=== PATIENT | female | born 1960 | race Caucasian/White ===

== ENCOUNTER 2023-02-07 08:54 | Outpatient (RCR) | payer OTHER ==
[~2023-02-07 08:54] MED LIST: BUPIVACAINE HCL 0.5% INJ 30 ML VIAL INJ ONE; CRESTOR10 MG PO; LEVOTHYROXINE112 MCG PO; LIDOCAINE 1% W/EPINEPHRINE 20 ML VIAL ONE; LISINOPRIL-HCT1 EAC2 PO
== END 2023-02-10 ==
LOC: PT 08:54
PROVIDERS: ATTEND Orthopaedic Surgery
DX: S83.232A Complex tear of medial meniscus, current injury, left knee, initial encounter (principal); M25.562 Pain in left knee

== ENCOUNTER 2023-07-09 06:04 | Observation (INO) | payer OTHER ==
[~2023-07-09] VITALS: Ht 154.9 cm; Wt 70.8 kg
[~2023-07-09 06:04] MED LIST changes: -BUPIVACAINE HCL 0.5% INJ 30 ML VIAL INJ ONE; -LIDOCAINE 1% W/EPINEPHRINE 20 ML VIAL ONE
[2023-07-09 06:29] LABS: BASOPHILS # (AUTO) 0.1 (0.0-0.1); BASOPHILS % 1.1 % (0.0-1.0); EOSINOPHILS # (AUTO) 0.4 (0.0-0.4); EOSINOPHILS % 4.7 % (0.0-6.0); HEMOGLOBIN 14.5 g/dL (12.0-16.0); LYMPHOCYTES # (AUTO) 3.2 (1.0-3.2); LYMPHOCYTES % 34.5 % (18.0-39.1); MEAN CORPUSCULAR HEMOGLOBIN 30.9 pg (28-32); MEAN CORPUSCULAR HGB CONC 33.7 g/dL (31-35); MEAN CORPUSCULAR VOLUME 91.7 fL (81-99); MONOCYTES # (AUTO) 0.5 (0.2-0.8); MONOCYTES % 5.7 % (4.4-11.3); NEUTROPHILS % 53.8 % (38.7-80.0); PLATELET COUNT 250 x10e3/uL (140-360); RED BLOOD COUNT 4.69 x10e6/uL (3.6-5.1); RED CELL DISTRIBUTION WIDTH 12.2 % (11.7-14.4)
[2023-07-09] MEDS: ONDANSETRON HCL INJ 2MG/ML 2ML 2 MG/ML VIAL IV STA (06:29)
[2023-07-09] MEDS: DONNATAL/LIDOCAINE/MAALOX 30 ML SUSP PO ONE (06:29)
[2023-07-09] MEDS ORDERED: LIDOCAINE VISC 2% SOLN 15 ML UDC ONE (06:30)
[2023-07-09] MEDS ORDERED: BELLADONNA ALK/PHENOBARBITAL 5 ML UDC ONE (06:30)
[2023-07-09] MEDS ORDERED: MAGNESIUM/ALUMINUM/SIMETHICONE 30 ML UDC ONE (06:30)
[2023-07-09 06:53] LABS: ALANINE AMINOTRANSFERASE 13 IU/L (0-55); ALBUMIN 4.2 g/dL (3.5-5.0); ALBUMIN/GLOBULIN RATIO 1.2 (0.8-2.0); ALKALINE PHOSPHATASE 78 IU/L (40-150); ANION GAP 16.5 mmol/L (8-16); BILIRUBIN,TOTAL 0.3 mg/dL (0.2-1.2); BLOOD UREA NITROGEN 20 mg/dL (7-26); BUN/CREATININE RATIO 22 (6-25); CALCIUM 9.8 mg/dL (8.4-10.2); CARBON DIOXIDE 24 mmol/L (22-29); CHLORIDE 104 mmol/L (98-107); CREATINE KINASE 59 IU/L (29-168); CREATININE, SERUM 0.92 mg/dL (0.57-1.11); EST GLOMERULAR FILTRATION RATE 70 ML/MIN (>=60); GLUCOSE 104 mg/dL (74-118); POTASSIUM 3.5 mmol/L (3.5-5.1); SODIUM 141 mmol/L (136-145); TOTAL PROTEIN 7.7 g/dL (6.5-8.1)
[2023-07-09] MEDS: ASPIRIN 81 MG CHEW TAB PO ONE ×2 (07:11→09:46)
[2023-07-09 07:21] LABS: TROPONIN I < 0.001 ng/mL (0-0.300)
[2023-07-09] MEDS ORDERED: SODIUM CHLORIDE 0.9% 100 ML ONE (07:39)
[2023-07-09] MEDS ORDERED: IOPAMIDOL 370 MG/ML 100 ML INFUS..BTL INJ ONE (07:39)
[2023-07-09] MEDS ORDERED: ONDANSETRON HCL INJ 2MG/ML 2ML 2 MG/ML VIAL IV PRN (08:45)
[2023-07-09] MEDS ORDERED: Morphine 2mg Syringe 2 MG/ML SYR IV PRN (08:45)
[2023-07-09 10:01] VITALS: BP 131/87; PULSE 81; RESP 18; TEMP 98.4; O2SAT 99
[2023-07-09] MEDS: CEPACOL SORE THROAT LOZENGES PO PRN (11:46)
[2023-07-09 12:40] VITALS: BP 120/69; PULSE 65; RESP 18; TEMP 98.3; O2SAT 99
[2023-07-09 14:57] LABS: CREATINE KINASE 46 IU/L (29-168)
[2023-07-09 15:17] LABS: TROPONIN I < 0.001 ng/mL (0-0.300)
[2023-07-09 16:44] VITALS: BP 130/67; PULSE 80; RESP 17; TEMP 98.3; O2SAT 99
[2023-07-09 20:00] VITALS: BP 131/65; PULSE 72; RESP 18; TEMP 97.7; O2SAT 98
[2023-07-09 21:00] VITALS: BP 131/65; PULSE 72; RESP 18; TEMP 97.7; O2SAT 98
[2023-07-10] VITALS: BP 124/64; PULSE 74; RESP 18; TEMP 97.4; O2SAT 98
[2023-07-10 04:00] VITALS: BP 117/67; PULSE 71; RESP 18; TEMP 97.7; O2SAT 98
[2023-07-10 07:30] LABS: BASOPHILS # (AUTO) 0.1 (0.0-0.1); BASOPHILS % 0.9 % (0.0-1.0); EOSINOPHILS # (AUTO) 0.4 (0.0-0.4); EOSINOPHILS % 4.8 % (0.0-6.0); HEMATOCRIT 40.3 % (34.2-44.1); HEMOGLOBIN 13.3 g/dL (12.0-16.0); LYMPHOCYTES # (AUTO) 2.4 (1.0-3.2); LYMPHOCYTES % 32.5 % (18.0-39.1); MEAN CORPUSCULAR HEMOGLOBIN 30.3 pg (28-32); MEAN CORPUSCULAR VOLUME 91.8 fL (81-99); MONOCYTES # (AUTO) 0.5 (0.2-0.8); MONOCYTES % 6.3 % (4.4-11.3); NEUTROPHILS # (AUTO) 4.1 (2.1-6.9); NEUTROPHILS % 55.1 % (38.7-80.0); PLATELET COUNT 234 x10e3/uL (140-360); RED BLOOD COUNT 4.39 x10e6/uL (3.6-5.1); RED CELL DISTRIBUTION WIDTH 12.4 % (11.7-14.4); WHITE BLOOD COUNT 7.51 x10e3/uL (4.8-10.8)
[2023-07-10 07:46] LABS: CREATINE KINASE 46 IU/L (29-168)
[2023-07-10 08:00] VITALS: BP 117/67; PULSE 71; RESP 18; TEMP 97.7; O2SAT 98
[2023-07-10 08:13] LABS: TROPONIN I < 0.001 ng/mL (0-0.300)
[2023-07-10 08:25] LABS: ALBUMIN 3.8 g/dL (3.5-5.0); ALBUMIN/GLOBULIN RATIO 1.2 (0.8-2.0); ANION GAP 14.9 mmol/L (8-16); BILIRUBIN,TOTAL 0.4 mg/dL (0.2-1.2); CALCIUM 9.3 mg/dL (8.4-10.2); CREATININE, SERUM 0.79 mg/dL (0.57-1.11); POTASSIUM 3.9 mmol/L (3.5-5.1); TOTAL PROTEIN 7.1 g/dL (6.5-8.1)
[2023-07-10 08:46] VITALS: BP 135/71; PULSE 73; RESP 18; TEMP 98.1; O2SAT 98
[2023-07-10] MEDS: LEVOTHYROXINE SODIUM 112 MCG TAB PO SCH (10:17)
[2023-07-10] MEDS ORDERED: LISINOPRIL 10 MG TAB PO SCH ×2 (11:15→21:00)
[2023-07-10 13:01] VITALS: BP 157/84; PULSE 77; RESP 17; TEMP 98; O2SAT 98
[2023-07-10 13:22] LABS: CREATINE KINASE 46 IU/L (29-168)
[2023-07-10 13:35] LABS: TROPONIN I < 0.001 ng/mL (0-0.300)
[2023-07-10] MEDS ORDERED: ONDANSETRON HCL 4 MG ORAL DISINTEGRATING TAB PO PRN (15:30)
[2023-07-10] MEDS ORDERED: SIMVASTATIN 40 MG TAB PO SCH (21:00)
== END 2023-07-10 15:21 | disposition home or self-care (01) ==
LOC: ER 06:15 → ERHOLD 08:38 → MED/SURG2 09:30
PROVIDERS: ADMIT Internal Medicine; ATTEND Internal Medicine
DX: R07.89 Other chest pain (principal); I10 Essential (primary) hypertension; E78.5 Hyperlipidemia, unspecified; E03.9 Hypothyroidism, unspecified; K57.30 Diverticulosis of large intestine without perforation or abscess without bleeding; N20.0 Calculus of kidney; N28.1 Cyst of kidney, acquired; R94.31 Abnormal electrocardiogram [ECG] [EKG]; Z11.52 Encounter for screening for COVID-19; Z88.5 Allergy status to narcotic agent; Z88.2 Allergy status to sulfonamides; Z79.899 Other long term (current) drug therapy
CPT/HCPCS: 36415 ×2; 71046; 71275; 74174; 80053 ×2; 82550 ×2; 83690; 84484 ×2; 85025 ×2; 93005; 93306; 99284; G0378 ×2; J2405; J7050; Q9967; U0002